=== PATIENT | female | born 1945 | race Caucasian/White ===

== ENCOUNTER → 2017-04-03 06:53 | Day surgery (SDC) | payer MEDICARE ==
[~2017-04-03 06:53] MED LIST: Clindamycin 900 MG IVPREMIX(* 900 MG/50 ML SDV IV ONE; Flumazenil* 0.1 MG/ML 5 ML MDV ONE; Heparin 2 UNITS/ML IVPREMIX* 1,000 ML IV ONE; Heparin 2 UNITS/ML IVPREMIX* 3,000 ML IV ONE; Heparin(*) 1000 UNIT/ML 10 ML VIAL CATH LAB IV ONE; Iodixanol* (CONTRAST) 320 MG/ML 100 ML SDV ONE; Iohexol 350 (CONTRAST) 200 ML MDV IV ONE; Ketorolac INJ* 30 MG/ML 1 ML VIAL ONE; LORazepam TAB(*) 1 MG ONE; Lidocaine 1% INJ* 10 MG/ML 30 ML SDV ONE; Midazolam* 1 MG/ML 10 ML VIAL (10 MG) ONE; NS 0.9% 1000 ML* 1,000 ML IV ONE; Naloxone* 0.4 MG/ML 1 ML VIAL ONE; Ondansetron INJ* 2 MG/ML VIAL ONE; fentaNYL* 50 MCG/ML 5 ML VIAL (250 MCG VIAL) ONE; hydrALAZINE IV* 20 MG/ML VIAL ONE; nitroGLYCERIN DRIP* 25,000 MCG/250 ML BTL ONE
[2017-04-03 07:35] LABS: Hematocrit 40 % (35-47); Hemoglobin 13.6 g/dl (12.0-16.0); Mean Corpuscular HGB Conc 34 g/dl (31-36); Mean Corpuscular Hemoglobin 32 pg (27-31); Mean Corpuscular Volume 95 fL (80-97); Mean Platelet Volume 8 um3 (7.4-10.4); Red Blood Count 4.26 10^6/ul (4.0-5.4); Red Cell Distribution Width 14 % (10.5-15); White Blood Count 8.6 10^3/ul (3.5-10.8)
--- NOTE | 2017-04-03 17:21 | RAD ---
CPT II Codes: 6045F Procedure(s) performed: 1. Pelvic arteriogram. 2. Right lower extremity arteriogram. 3. Catheter transduction of intraluminal pressures across the bilateral iliac arterial system. 4. Revascularization of occluded distal right SFA and popliteal arteries. 5. Atherectomy and balloon angioplasty of the right tibial peroneal trunk, popliteal artery and superficial femoral artery. Date of service: April 03, 2017 Indication for procedure: Right leg claudication and rest pain Comparison: CTA dated January 19, 2017 Contrast: 100 mL Omnipaque 350 Fluoroscopy Time: 26.1 minutes Vessels Accessed: Percutaneous access was obtained with ultrasound guidance in the left common femoral artery in the retrograde direction towards the heart. Catheter arteriography, with the catheter tip located within the lumen of the following arteries, was performed at the left external iliac artery, aorta, right common iliac artery, right external iliac artery, right common femoral artery, right superficial femoral artery right popliteal artery and right tibioperoneal trunk. Anesthesia: Conscious sedation with IV Fentanyl and Versed as well as local 1% lidocaine injected locally at the arteriotomy site. Conscious sedation time: Timeout: 918 hours Case end: 1139 hours Total conscious sedation time: 2 hours and 21 minutes Additional medications: * 200 mcg IA nitroglycerin injected intermittently throughout the course of the procedure to alleviate arterial spasm. * IV heparin 6000 Units to achieve a goal ACT of 250-300. * The patient received 1 mg of p.o. Ativan prior to the onset of the procedure. * Clindamycin 900 mg administered IV upon arrival. PROCEDURE NOTE AND INTRAPROCEDURAL IMAGING FINDINGS: Immediately prior to the procedure the patient signed consent after thoroughly discussing all risks, benefits and alternative therapies. The patient was positioned on the fluoroscopy table in the supine position and the bilateral groins and right ankle were shaved, prepped and the patient was draped in standard sterile fashion. Using fluoroscopic imaging the location of the left common femoral head was marked externally with a skin marker on the patient's groin. Utilizing sonographic guidance and palpation, the left common femoral artery was cannulated overlying the femoral head with a 21-gauge needle. An ultrasound image was saved. As was noted on the prior CTA with runoff, there is a high femoral bifurcation at the level of the iliac bone. A microwire was slowly and smoothly advanced into the common femoral artery under fluoroscopic imaging. No buckling of the wire was visualized to indicate dissection. With the wire securing percutaneous arterial access, the needle was removed and replaced with a 5-Yemeni sheath. The needle and inner stiffener were removed and pulsatile blood flow was observed further indicating true intraluminal access. A 0.035 inch wire was advanced under fluoroscopic control to the aorta. The 5-Yemeni sheath removed and exchanged for a 7-Yemeni 11 cm length SideArm sheath. Due to the extensive calcified atherosclerosis, the patient's CTA was of limited diagnostic value and aortography was necessary. Over the wire a 5-Yemeni pigtail catheter was advanced to the level of just below the renal arteries and aortography was performed. This again demonstrated the patient's known 3 cm suprailiac abdominal aortic aneurysm which had been documented on prior CTA and aortic ultrasound. Brisk arterial flow is noted in the bilateral renal arteries. There is narrowing of the bilateral common iliac arteries but in-line flow is recorded as far as the bilateral proximal femoral arteries. Pressure transduction across the narrowed left common and external iliac artery was performed. The following pressures were simultaneously acquired (mm Hg): SBP DBP Mean Aorta: 126 52 80 TITI: 115 51 74 The mean arterial gradient measuring 6 is less than the 10 cut off for clinically significant common iliac artery stenosis. Since the patient is not reporting specifically hip and buttock claudication no intervention was deemed necessary at the left iliac arteries. A hydrophilic wire was inserted into the flush catheter and the catheter was replaced with a 5-Yemeni rim catheter. The rim catheter and wire were utilized to access the contralateral common iliac artery. The rim catheter was removed and replaced with a 4-Yemeni curved tip catheter. Arteriography with the tip at the right common iliac artery was performed further demonstrating patency of the right external and internal iliac arteries. Pressure transduction across the narrowed right common and external iliac external iliac artery was performed. The following pressures were simultaneously acquired (mm Hg): SBP DBP Mean REIA: 132 56 86 TITI: 123 55 83 Pressure transduction indicated no intervention was necessary currently at the iliac arteries and a hydrophilic wire was advanced into the right superficial femoral artery. The 4-Yemeni curved tip catheter was advanced to the proximal right superficial femoral artery and contrast arteriography showed multiple levels of mild to moderate stenosis in the proximal and mid level right superficial femoral artery. The catheter tip was drawn back specifically to the right common femoral artery to perform contrast arteriography of the distal SFA, popliteal and proximal infrapopliteal arteries. This demonstrated an approximately 6.5 cm occlusion of the distal superficial femoral and popliteal arteries with the distal popliteal artery filling by reconstituted flow via intramuscular and genicular artery branches. There is minimal flow in the right anterior tibial artery. From the distal popliteal artery there is in-line flow to the tibioperoneal trunk into the proximal portions of the peroneal and posterior tibial arteries. Utilizing the 0.035 inch stiff hydrophilic wire and the curved tip catheter the occluded distal SFA and popliteal artery was cannulated and the wire was advanced into the proximal most right posterior tibial artery. With the wire securing place the catheter and 7-Yemeni sheath were removed and replaced with a 7-Yemeni, 65 cm length [employer] sheath carefully crossing the iliac bifurcation under fluoroscopic control. Over the wire a CXI support catheter was advanced to the tibioperoneal trunk. The wire was removed and contrast arteriography of the tibioperoneal trunk was performed showing multiple foci of stenoses but in-line flow retained in the right posterior tibial artery with the peroneal artery not filling beyond the level of the ankle joint. A 0.018" Viper wire was advanced until the tip terminating in the proximal posterior tibial artery. With the 7-Yemeni sheath now securing access in the proximal superficial femoral artery the 2.2 mm Benld atherectomy system was advanced to the occluded portion of the right SFA and popliteal artery. Atherectomy under fluoroscopic control was performed across the distal superficial femoral artery, popliteal artery and into the proximal portion of the tibioperoneal trunk. After several atherectomy runs contrast arteriography from the sheath demonstrated improved but persistent stenotic flow through the previously occluded right SFA and popliteal arteries. The atherectomy system was removed and the Viper wire was replaced with the hydrophilic stiff 0.035 inch wire. With the hydrophilic wire securing access a 4 mm x 150 mm Passeo-35 balloon was advanced into the previously occluded right SFA and popliteal artery. Balloon angioplasty was performed across the distal superficial femoral artery, popliteal artery and into the proximal portion of the tibioperoneal trunk well a small amount of narrowing was previously identified. Under fluoroscopic control balloon angioplasty was performed inflated the balloon just below its burst pressure corresponding to a diameter of approximately 4.37 mm. Following mass the balloon was drawn back and the entire length of the right superficial femoral artery was balloon angioplastied. During each angioplasty session the balloon remained inflated for minimum of 2 minutes to address vasospasm. Nitroglycerin was also injected intermittently to further control vasospasm. This balloon was removed and replaced with a 5 mm x 120 mm paclitaxel coated IN.PACT balloon and balloon angioplasty began at the distal superficial femoral artery spanning the right popliteal artery and proximal portion of the tibioperoneal trunk. The balloon remained inflated at nominal pressure for minimum of 3 minutes to ensure adequate drug delivery to the endothelium. Similar to the prior balloon, this 5 mm balloon was then inflated along the entire length of the right superficial femoral artery. During each inflation the balloon remained inflated for minimum of 2 minutes to alleviate arterial spasm. With the sheath at the right external iliac artery contrast arteriography was performed showing brisk flow throughout the length of the superficial femoral artery and into the peroneal and posterior tibial arteries as far as the level of the ankle joint. Satisfied with the arteriogram, the long 7-Yemeni sheath was replaced with a new 7-Yemeni, 11 cm sheath. Through the side arm of the access sheath arteriography of the left common femoral artery demonstrated an appropriate puncture of the common femoral artery above the bifurcation and below the inferior epigastric artery. The left external iliac artery and short common femoral artery appear to be diminutive measuring no more than 5 mm in diameter. Furthermore, the patient's high femoral bifurcation and very thin body habitus may deployment of a percutaneous closure device deemed to be unsafe. At this point the patient's ACT measured 225, a level where the sheath could not be removed. The sheath was sutured to the left groin to allow the ACT to trend downward for bedside sheath removal with application of pressure to the left groin. Imaging of the abdomen at the conclusion of the procedure shows a large right extrarenal pelvis without definite hydronephrosis of the right kidney. The patient tolerated the procedure well and was transferred to angiography holding bay for standard post procedural observation. SUMMARY OF PROCEDURE, IMAGING FINDINGS AND INTERVENTIONS PERFORMED: 1. Diagnostic studies performed: * Arterial access was obtained at the left common femoral artery in the retrograde direction (i.e. towards the heart) with ultrasound guidance. A sonographic image was recorded. * Diagnostic catheter angiography (necessary to correctly diagnose arterial insufficiency and to perform the appropriate interventions) was performed with the catheter tip in the left external iliac artery, aorta, right common iliac artery, right external iliac artery, right common femoral artery, right superficial femoral artery, right popliteal artery, right tibioperoneal trunk and right posterior tibial artery * Catheter arteriography was performed of the lower abdominal aorta, renal arteries, iliac arteries and all arteries of the right lower extremity as far as the right midfoot. * At the conclusion of the procedure arteriography was performed through the side arm of the access sheath to image the distal left external iliac artery, left common femoral artery and proximal superficial femoral artery and femoral profundus. * Catheter Pressure Transduction was performed with catheter tips at the aorta and left external iliac artery and later simultaneous pressure transduction was recorded at the right external iliac artery and left external iliac artery. There is a gradient between the aorta and left external iliac artery but the difference 6 mm Hg is lower than the 10 mm Hg minimum to warrant stenting of the iliac arteries and therefore stenting was deferred. 2. Interpretation of diagnostic studies performed: * Infrarenal abdominal aortic aneurysm just above the iliac bifurcation measuring approximately 3 cm in diameter. Given differences in technique this is similar to the CTA acquired January 19, 2017 and the ultrasound acquired January 19, 2017. * Multiple etea-ho-wiyqmorb stenoses throughout the right superficial femoral artery culminating in a 6 mm occlusion that spans the distal right superficial femoral artery and proximal popliteal artery. There are also mild stenoses at the right tibioperoneal trunk. * Occlusion of the right anterior tibial artery beyond the branch point of the vessel. * Single vessel runoff provided to the right midfoot by the posterior tibial artery while the peroneal artery does not fill directly beyond the ankle. * Arteriography performed for the purpose of deploying a percutaneous arterial closure device demonstrates adequately patent left external iliac artery, common femoral artery and proximal superficial femoral artery and femoral profundus. The patient's diminutive artery, high femoral bifurcation and thin body habitus prevented safe percutaneous closure of the left common femoral arteriotomy. * Right extrarenal pelvis is noted at the conclusion of the procedure without yessica hydronephrosis. 3. Surgical interventions performed: * Catheter wire revascularization of the occluded right SFA and popliteal arteries. * Atherectomy across the occluded right SFA and popliteal artery extending into the tibioperoneal trunk with a 2.2 mm Benld atherectomy device. * Balloon angioplasty from the right tibioperoneal trunk to the right common femoral artery including the popliteal and superficial femoral arteries with a 4 mm x 150 mm Passeo-35 balloon. * Balloon angioplasty spanning the right tibioperoneal trunk, popliteal artery and distal superficial femoral artery with a 5 mm x 120 mm paclitaxel coated IN.PACT balloon. * The previously drug coated balloon was then used to balloon angioplasty the remaining right superficial femoral artery including the ostium of the right superficial femoral artery and the right common femoral artery. 4. Interpretation of interventions performed: * Final arteriography demonstrated brisk in-line flow from the right external iliac artery through the right superficial femoral artery, across the previously occluded distal right SFA and popliteal arteries as far as the distal right peroneal and posterior tibial arteries.. Plan: 1. Aspirin 81 mg p.o. daily for life. 2. Plavix 75 mg p.o. daily x 6 months. 3. The patient's ACT trended downward to a level of 160 and the 7-Yemeni sheath was pulled at the bedside in the [facility] holding area. Direct manual pressure was held for 30 minutes. There were no signs of bleeding. The patient was then transferred to short stay surgical unit for 6 hours of bed rest according to nonclosure device deployment protocol. 4. Clinical and imaging follow-up according to standard Interventional Radiology protocol.
[2017-04-03 18:48] VITALS: BP 161/71
--- NOTE | 2017-04-03 19:40 | PN ---
Hospitalist Progress Note Date of Service: 04/03/[address] Tai to evaluate an EKG on this patient. EKG was reviewed by myself and Dr. Koenig. Shows Right bundle branch block, no other acute finding. Patient denies any shortness of breath, chest pain or palpitation. Assessment: Patient is lying flat on the bed, respirations are easy and even, lung sounds clear, Cardiac S1S2 regular rate and rhythm. abdomen soft non tender bowel sounds positive x 4. pedal pulses +2 bilaterally Plan: EKG: Rate 72 right bundle branch block, no other changes. This is a benign finding. I would recommend that she follow up with her primary care provider as an outpatient.
== END | disposition home or self-care (01) ==
LOC: CHICATH 06:53
PROVIDERS: ATTEND Radiology Diagnostic Radiology
DX: I70.221 Atherosclerosis of native arteries of extremities with rest pain, right leg (principal); I71.4 Abdominal aortic aneurysm, without rupture; I10 Essential (primary) hypertension; F17.210 Nicotine dependence, cigarettes, uncomplicated; E11.9 Type 2 diabetes mellitus without complications
CPT/HCPCS: 36415; 75625; 76937; 85025; 85610; 93005; 99156; 99157; A9270-GY; C1724; C1725; C1769; C1887; C1894; J0360; J1644; J1885; J2250; J2310; J2405; J3010